=== PATIENT | male | born 2000 | race Caucasian/White ===

== ENCOUNTER 2022-02-20 09:12 | Inpatient (IN) | payer OTHER ==
[2022-02-20] MEDS ORDERED: ASPIRIN 81 MG CHEWABLE TABLETS PO ONE (09:53)
[2022-02-20] MEDS ORDERED: ONDANSETRON 4 MG/2 ML VIAL IVPUSH ONE (09:54)
[2022-02-20] MEDS ORDERED: SODIUM CHLORIDE 1,000 ML IV STA (09:54)
[2022-02-20] MEDS ORDERED: ASPIRIN 81 MG CHEWABLE TABLETS ONE (10:11)
[2022-02-20] MEDS ORDERED: ONDANSETRON 4 MG/2 ML VIAL ONE (10:11)
[2022-02-20 10:57] LABS: BASO % 0.8 % (0-2.0); EOS % 0.3 % (0-4.5); HEMATOCRIT 43.5 % (35.4-49); HEMOGLOBIN 15.4 GM/dL (11.7-16.9); LYMPH % 17.1 % (8-40); MCH 29.6 pg (25.7-33.7); MCHC 35.5 g/dl (32.0-35.9); MEAN CELL VOLUME 83.4 fl (80-96); MEAN PLT VOLUME 9.1 fl (7.5-11.1); MONO % 12.5 % (3.8-10.2); NEUT % 69.3 % (42.8-82.8); PLATELET COUNT 208 10^3/uL (134-434); RBC 5.22 M/mm3 (4.00-5.60); RDW 13.9 % (11.9-15.9); WHITE BLOOD COUNT 8.2 K/mm3 (4.0-10.0)
[2022-02-20 11:25] LABS: CALCIUM 9.3 mg/dL (8.5-10.1)
[2022-02-20 11:26] LABS: ALBUMIN 4.2 g/dl (3.4-5.0); BLOOD UREA NITROGEN 12.8 mg/dL (7-18); MAGNESIUM 2.4 mg/dL (1.8-2.4)
[2022-02-20 11:30] LABS: ACTIVATED PTT 34.2 SECONDS (25.2-36.5); INR 1.27 (0.83-1.09); PROTHROMBIN TIME (PATIENT) 14.6 SEC (9.7-13.0)
[2022-02-20 11:31] LABS: BILIRUBIN,TOTAL 1.6 mg/dL (0.2-1); TOT PROT 8.6 g/dl (6.4-8.2)
[2022-02-20] MEDS ORDERED: ACETAMINOPHEN 325 MG TABLET (FP) ONE (14:00)
[2022-02-20 14:06] LABS: EPI CELLS 17 /uL (0-25.1); HYALINE CASTS 5 /uL (0-3.1); PH,URINE 5.5 (5.0-8.0); URINE APPEARANCE CLEAR; URINE BACTERIA 5 /uL (0-1359); URINE BILIRUBIN NEGATIVE (NEGATIVE); URINE COLOR DK YELLOW; URINE GLUCOSE (UA) NEGATIVE (NEGATIVE); URINE KETONE TRACE (NEGATIVE); URINE LEUK ESTERASE NEGATIVE (NEGATIVE); URINE NITRITE NEGATIVE (NEGATIVE); URINE PROTEIN 2+ (NEGATIVE); URINE RBC 8 /uL (0-23.9); URINE WBC 19 /uL (0-25.8)
[2022-02-20] MEDS: ACETAMINOPHEN 325 MG TABLET (FP) PO PRN ×2 (14:12→23:51)
[2022-02-21 01:00] VITALS: BMI 32.3
[2022-02-21] MEDS ORDERED: ACETAMINOPHEN 500 MG TABLET (FP) PO PRN (05:11)
[2022-02-21 07:33] LABS: EOS % 0.4 % (0-4.5); HEMATOCRIT 38.6 % (35.4-49); HEMOGLOBIN 13.6 GM/dL (11.7-16.9); LYMPH % 21.7 % (8-40); MCH 29.6 pg (25.7-33.7); MCHC 35.2 g/dl (32.0-35.9); MEAN CELL VOLUME 83.9 fl (80-96); MEAN PLT VOLUME 9.3 fl (7.5-11.1); NEUT % 63.9 % (42.8-82.8); PLATELET COUNT 203 10^3/uL (134-434); RBC 4.61 M/mm3 (4.00-5.60); RDW 14.2 % (11.9-15.9); WHITE BLOOD COUNT 4.7 K/mm3 (4.0-10.0)
[2022-02-21 07:48] LABS: CHLORIDE 106 mmol/L (98-107); SODIUM 138 mmol/L (136-145)
[2022-02-21 07:57] LABS: ALBUMIN 3.6 g/dl (3.4-5.0); ANION GAP 7 MMOL/L (8-16); CALCIUM 8.4 mg/dL (8.5-10.1); CO2 25 mmol/L (21-32); GLUCOSE,RANDOM 101 mg/dL (74-106); MAGNESIUM 2.1 mg/dL (1.8-2.4)
[2022-02-21 07:59] LABS: SGPT/ALT 126 U/L (13-61)
[2022-02-21 08:00] LABS: CHOLESTEROL 163 mg/dL (50-200); CREATININE 1.1 mg/dL (0.55-1.3); SGOT/AST 132 U/L (15-37)
[2022-02-21 08:01] LABS: BILIRUBIN,TOTAL 1.5 mg/dL (0.2-1); HDL CHOLESTEROL 25 mg/dL (40-60); LDL CHOLESTEROL (ONLY SJRH) 119 mg/dL (5-100); TOT PROT 7.4 g/dl (6.4-8.2); TRIGLYCERIDES 144 mg/dL (0-150)
[2022-02-21 08:02] LABS: ALK PHOS 57 U/L (45-117)
[2022-02-21] MEDS: ENOXAPARIN NA (PORCINE) 40 MG/0.4 ML DISP.SYRIN SQ SCH (09:06)
[2022-02-21] MEDS: metoPROLOL SUCCINATE 25 MG TAB.SR.24H (FP) PO SCH (12:01)
[2022-02-21] MEDS: ACETAMINOPHEN 325 MG TABLET (FP) PO PRN (14:07)
[2022-02-21 15:21] LABS: HIV INTERPRETATION NEGATIVE (NEGATIVE)
[2022-02-22] MEDS: ACETAMINOPHEN 325 MG TABLET (FP) PO PRN (02:15)
[2022-02-22 08:15] LABS: BASO % 0.9 % (0-2.0); EOS % 0.1 % (0-4.5); HEMATOCRIT 37.5 % (35.4-49); HEMOGLOBIN 13.2 GM/dL (11.7-16.9); LYMPH % 28.4 % (8-40); MCH 29.6 pg (25.7-33.7); MCHC 35.3 g/dl (32.0-35.9); MEAN PLT VOLUME 9.5 fl (7.5-11.1); MONO % 10.7 % (3.8-10.2); NEUT % 59.9 % (42.8-82.8); PLATELET COUNT 203 10^3/uL (134-434); RBC 4.46 M/mm3 (4.00-5.60); RDW 13.6 % (11.9-15.9); WHITE BLOOD COUNT 4.5 K/mm3 (4.0-10.0)
[2022-02-22 08:40] LABS: ALBUMIN 3.7 g/dl (3.4-5.0); BLOOD UREA NITROGEN 10.3 mg/dL (7-18); CALCIUM 8.9 mg/dL (8.5-10.1); MAGNESIUM 2.4 mg/dL (1.8-2.4)
[2022-02-22 08:43] LABS: PHOSPHOROUS 4.1 mg/dL (2.5-4.9)
[2022-02-22 08:44] LABS: TOT PROT 7.3 g/dl (6.4-8.2)
[2022-02-22] MEDS: ENOXAPARIN NA (PORCINE) 40 MG/0.4 ML DISP.SYRIN SQ SCH (09:15)
[2022-02-22] MEDS: metoPROLOL SUCCINATE 25 MG TAB.SR.24H (FP) PO SCH (09:16)
[2022-02-23] MEDS: metoPROLOL SUCCINATE 25 MG TAB.SR.24H (FP) PO SCH (09:07)
[2022-02-23] MEDS: ENOXAPARIN NA (PORCINE) 40 MG/0.4 ML DISP.SYRIN SQ SCH (09:07)
[2022-02-23] MEDS: valACYclovir HCL 500 MG TABLET (FP) PO SCH (21:30)
[2022-02-24 07:02] LABS: BASO % 0.9 % (0-2.0); EOS % 1.2 % (0-4.5); HEMOGLOBIN 13.4 GM/dL (11.7-16.9); LYMPH % 37.2 % (8-40); MCH 29.6 pg (25.7-33.7); MCHC 35.3 g/dl (32.0-35.9); MEAN CELL VOLUME 83.8 fl (80-96); MEAN PLT VOLUME 8.5 fl (7.5-11.1); MONO % 13.1 % (3.8-10.2); NEUT % 47.6 % (42.8-82.8); PLATELET COUNT 226 10^3/uL (134-434); RBC 4.53 M/mm3 (4.00-5.60); RDW 13.9 % (11.9-15.9); WHITE BLOOD COUNT 4.9 K/mm3 (4.0-10.0)
[2022-02-24 07:35] LABS: BLOOD UREA NITROGEN 11.1 mg/dL (7-18)
[2022-02-24 07:36] LABS: ALBUMIN 3.7 g/dl (3.4-5.0)
[2022-02-24 07:39] LABS: BILIRUBIN,TOTAL 1.1 mg/dL (0.2-1); CREATININE 0.8 mg/dL (0.55-1.3)
[2022-02-24 07:40] LABS: TOT PROT 7.4 g/dl (6.4-8.2)
[2022-02-24] MEDS: valACYclovir HCL 500 MG TABLET (FP) PO SCH ×2 (07:42→13:38)
[2022-02-24] MEDS ORDERED: guaiFENesin/D-METHORPHAN HB 10 ML UNIT-DOSE CUPS PO ONE (10:03)
[2022-02-24] MEDS: metoPROLOL SUCCINATE 25 MG TAB.SR.24H (FP) PO SCH (10:12)
[2022-02-24] MEDS: ENOXAPARIN NA (PORCINE) 40 MG/0.4 ML DISP.SYRIN SQ SCH ×2 (10:12→10:18)
[2022-02-24 14:39] VITALS: BP 105/53; PULSE 69; TEMP 97.6
[2022-02-25 06:06] LABS: CMV IgM < 30.0 AU/mL (0.0-29.9)
[2022-02-25 12:07] LABS: COXSACKIE A16 IGM Negative titer (Neg:<1:10); COXSACKIE A24 IGG Negative titer (Neg:<1:100); COXSACKIE A24 IGM Negative titer (Neg:<1:10); COXSACKIE A7 IGM Negative titer (Neg:<1:10); COXSACKIE A9 IGM Negative titer (Neg:<1:10)
[2022-02-25 13:07] LABS: VARICELLA IgM <0.91 index (0.00-0.90)
[2022-02-26 16:08] LABS: EPSTEIN BARR ANTIBODY IgM <36.0 U/mL (0.0-35.9)
== END 2022-02-24 17:21 | disposition home or self-care (01) | DRG 207 ==
LOC: JER 09:12 → JERBED 12:30 → J4W 23:35
PROVIDERS: ADMIT Internal Medicine; ATTEND Internal Medicine
DX: B33.22 Viral myocarditis (principal); R77.8 Other specified abnormalities of plasma proteins; R79.89 Other specified abnormal findings of blood chemistry; R21 Rash and other nonspecific skin eruption; R16.0 Hepatomegaly, not elsewhere classified; R00.0 Tachycardia, unspecified; R50.9 Fever, unspecified
CPT/HCPCS: 36415; 71045-TC-FY; 71046-TC-FY; 76700-TC; 80053; 80061; 81003; 83036; 83605; 83735; 83880; 84100; 84436; 84443; 84484; 85025; 85610; 85651; 85730; 86140; 86308; 86618; 86644; 86645; 86658; 86663; 86664; 86665; 86705; 86708; 86709; 86787; 86803; 87040; 87340; 87389; 87517; 87633; 87651; 87798; 93005; 93010; 93306-TC; 99285-25; C9803-CS; U0003; U0005

== ENCOUNTER 2024-04-19 17:19 | Emergency (ER) | payer OTHER ==
[2024-04-19 17:30] VITALS: BP 142/88; PULSE 93; RESP 19; TEMP 99; BMI 33.5
[2024-04-19] MEDS ORDERED: ONDANSETRON 4 MG/2 ML VIAL ONE (18:12)
[2024-04-19] MEDS ORDERED: ACETAMINOPHEN INJECTION 100 ML IVPB ONE (18:12)
[2024-04-19] MEDS: LACTATED RINGERS SOLUTION 1000 ML INFUS.BAG IV ONE (18:43)
[2024-04-19] MEDS: ACETAMINOPHEN 1000 MG/100 ML BAG IVPB ONE (18:43)
[2024-04-19] MEDS: ONDANSETRON 4 MG/2 ML VIAL IVPUSH ONE (18:43)
[2024-04-19 19:14] LABS: BASO % 0.2 % (0-2.0); HEMATOCRIT 44.6 % (35.4-49); HEMOGLOBIN 15.6 GM/dL (11.7-16.9); LYMPH % 8.2 % (8-40); MCH 29.6 pg (25.7-33.7); MEAN CELL VOLUME 84.6 fl (80-96); MEAN PLT VOLUME 9.5 fl (7.5-11.1); MONO % 3.2 % (3.8-10.2); NEUT % 88.4 % (42.8-82.8); PLATELET COUNT 299 10^3/uL (134-434); RBC 5.26 M/mm3 (4.00-5.60); WHITE BLOOD COUNT 11.2 K/mm3 (4.0-10.0)
[2024-04-19 19:22] LABS: POTASSIUM 4.7 mmol/L (3.5-5.1)
[2024-04-19 19:25] LABS: ALBUMIN 4.5 g/dl (3.4-5.0); CALCIUM 10.1 mg/dL (8.5-10.1)
[2024-04-19 19:26] LABS: BLOOD UREA NITROGEN 11.7 mg/dL (7-18)
[2024-04-19 19:29] LABS: CREATININE 1.5 mg/dL (0.55-1.3)
[2024-04-19 19:30] LABS: BILIRUBIN,TOTAL 0.7 mg/dL (0.2-1); TOT PROT 8.6 g/dl (6.4-8.2)
[2024-04-19 19:36] LABS: URINE APPEARANCE CLEAR; URINE BILIRUBIN NEGATIVE (NEGATIVE); URINE COLOR YELLOW; URINE GLUCOSE (UA) NEGATIVE (NEGATIVE); URINE KETONE TRACE (NEGATIVE); URINE LEUK ESTERASE NEGATIVE (NEGATIVE); URINE NITRITE NEGATIVE (NEGATIVE); URINE PROTEIN TRACE (NEGATIVE); URINE UROBILINOGEN 0.2 mg/dL (0.2-1.0)
[2024-04-19 20:59] LABS: HIV INTERPRETATION NEGATIVE (NEGATIVE)
[2024-04-19] MEDS ORDERED: KETOROLAC TROMETHAMINE 15 MG/ML VIAL ONE (22:50)
[2024-04-19] MEDS: KETOROLAC TROMETHAMINE 15 MG/ML VIAL IVPUSH ONE (22:58)
== END 2024-04-19 22:59 | disposition home or self-care (01) ==
LOC: JER 17:19
PROC: 3E033NZ Introduction of Analgesics, Hypnotics, Sedatives into Peripheral Vein, Percutaneous Approach (ICD-10-PCS; principal; 2024-04-19)
PROC: 3E0333Z Introduction of Anti-inflammatory into Peripheral Vein, Percutaneous Approach (ICD-10-PCS; 2024-04-19)
PROC: 3E033GC Introduction of Other Therapeutic Substance into Peripheral Vein, Percutaneous Approach (ICD-10-PCS; 2024-04-19)
DX: N50.812 Left testicular pain (principal); R10.32 Left lower quadrant pain; R11.10 Vomiting, unspecified
CPT/HCPCS: 36415; 74177-TC; 76870-TC; 80053; 81003; 83690; 85025; 86803; 87389; 99285-25; J0131; Q9967